=== PATIENT | female | born 1990 | race Asian ===

== ENCOUNTER 2023-07-21 23:32 | Inpatient (IN) ==
[2023-07-22] MEDS ORDERED: GENTAMICIN CONSULT ACTIVE PRN (00:23)
--- NOTE | 2023-07-22 00:29 | History & Physical Report ---
Date of Service July 22, 2023 Assessment & Plan (1) PROM (premature rupture of membranes): Plan: Primary section indicated, recommended, and accepted for rupture of membranes with labor and double footling presentation. Peds and anesthesia notified, en route. Consent completed at bedside and all questions of patient/FOB answered. Will use clinda and gent 2/2 severe allergy to PCN without known prior administration of cephalosporin per patient. (2) Breech presentation of fetus: History of Present Illness Primary Care Provider: NO PCP 33yo at 35w2d presents with SROM at home this evening followed rapidly by onset of painful contractions. Good FM, no VB. Since arriving her contractions have become more painful and gone from Q2-7 to Q2-3. She is gripping bedrails and grimacing with contractions. No prior cervical exams. GBS unknown, not yet collected. States her allergy to PCN is swelling of the face and shortness of breath. Last ingestion was dinner, 5-6pm per FOB. Allergies Allergy/AdvReac Type Severity Reaction Status Date / Time Penicillins Allergy Rash Verified 07/21/23 23:42 beer Allergy Severe Swelling Uncoded 07/09/23 15:30 of Lip/Tongue/Throat Home Medications Medication Instructions Recorded Confirmed Type cholecalciferol (vitamin D3) PO 01/04/23 07/09/23 History ferrous sulfate [Iron (ferrous PO 01/04/23 07/09/23 History sulfate)] vit-iron fum-folic ac PO 01/04/23 07/09/23 History [ Vitamin] vitamin E (dl, acetate) PO 01/04/23 07/09/23 History Past Med/Surg History Medical History Hemorrhoids Depression Surgical History S/P wisdom tooth extraction Family History Family/Other Breast cancer Denies family history of Ovarian cancer Colorectal cancer Social History Smoking Status: Never smoker Do You Dip or Chew Tobacco: No; Hx Alcohol Use: No Hx Substance Use: No Preferred Language: Gibralt[place] Communication Ability: Effective Ship Scraper Required: No Beliefs That Will Affect Care: None marital status: marital status details: Bandar Ponce (29) [phone] Current Living Situation: Spouse Current Living Situation Comment: lives with current occupational status: employed current occupation: [email or web address] Other Information That Helps Us Care for You: No Feels Safe at Home: Yes Safety Concerns: Feels Safe At This Time Physical Exam Constitutional: WD/WN, vitals as above + in distress Eyes: PERRL, conjunctivae normal, anicteric sclerae ENMT: external ear and nose normal, oropharynx normal Neck: supple Respiratory: normal respiratory effort and able to speak in complete sentences; no respiratory distress Cardiovascular: Rate/Rhythm: regular rate and regular rhythm Gastrointestinal (Abdomen): Gravid / AGA, nontender Musculoskeletal: no cyanosis or clubbing, extremities motor strength 5/5 Skin: no rashes, warm and dry Psychiatric: A+Ox3, euthymic affect Genitourinary: Speculum/Bimanual Exam: no vaginal lesions, no vaginal bleeding and uterus nontender OB Exam Abdomen: + breech (double footling, confirmed via bedside US) and + regular contractions (Q3) Manual OB Exam: + cervical dilation 2 cm, + cervical effacement 90%, + station 0 and + amniotic fluid (grossly ruptured for copious clear.) OB Exam Monitor Tracing: + external FHT monitor used, + external uterine monitor used and + category I Lymphatic: no cervical or axillary lymphadenopathy Results & Data Results & Data Vital Signs (Past 12 Hours) Vital Signs Temp Resp 07/21/23 23:44 97.7 F 16 PG Care Time/CCT Total # of Minutes Spent Total Time Spent with Patient: Total time spent is greater than 50% in coordination of care (as documented) at patient's floor/unit and/or counseling patient: Coding Level of Care Code None Diagnoses PROM (premature rupture of membranes) O42.90 Breech presentation of fetus O32.1XX0
[2023-07-22] MEDS: CITRIC ACID/SODIUM CITRATE 15 ML UDC PO ONE (00:55)
[2023-07-22] MEDS: LACTATED RINGER'S 1,000 ML IV SCH (00:55)
[2023-07-22] MEDS: CLINDAMYCIN/D5W 900 MG/50 ML BAG IV ONE (00:56)
[2023-07-22] MEDS ORDERED: ePHEDrine sulfate 50 MG/ML AMP IV PRN (00:57)
[2023-07-22] MEDS ORDERED: KETOROLAC 30 MG/ML VIAL IV PRN ×2 (00:57→18:57)
[2023-07-22] MEDS ORDERED: LACTATED RINGER'S 500 ML IV PRN (00:57)
[2023-07-22] MEDS ORDERED: MoRPHine SULFATE PF 1 MG/ML 10 ML AMP/VIAL INT SPINAL ONE (00:57)
[2023-07-22] MEDS ORDERED: MoRPHine SULFATE 2 MG/ML CARP IV PRN (00:57)
[2023-07-22] MEDS ORDERED: NALOXONE HCL 0.08 MG in SYRINGE 1.8 ML IV PRN (00:57)
[2023-07-22] MEDS ORDERED: MEPERIDINE HCL 25 MG/ML CARP/VIAL IV PRN (00:57)
[2023-07-22] MEDS ORDERED: PROMETHAZINE HCL 6.25 MG in SODIUM CHLORIDE 0.9% 50 ML IV PRN (00:57)
[2023-07-22] MEDS ORDERED: NALOXONE HCL 0.4 MG/1 ML VIAL/CARP IV PRN (00:57)
[2023-07-22] MEDS ORDERED: NALOXONE HCL 1 MG in SODIUM CHLORIDE 0.9% 1,000 ML IV PRN (00:57)
[2023-07-22] MEDS ORDERED: HYDROmorphone INJ 0.5 MG/0.5 ML SYR IV PRN (00:57)
[2023-07-22] MEDS ORDERED: diphenhydrAMINE 50 MG/ML VIAL IV PRN ×2 (00:57→18:57)
[2023-07-22] MEDS ORDERED: NALBUPHINE HCL 5 MG in SYRINGE 0 ML IV PRN (00:57)
--- NOTE | 2023-07-22 00:57 | Anesthesiology Consultation ---
Date of Service July 22, 2023 Assessment & Plan Chart Review Chart Review: Acceptable Risk for Surgery and Patient NOT seen in Pre Admission Testing Consults Requested none ASA ASA2E Proposed Anesthesia Anesthesia Type: Spinal (+intrathecal narcotics) Risk / Benefits Reviewed With: PT / POA / Parent / Guardian, Accepts Plan and Informed Consent Obtained History Surgery Operation Date: 07/22/23 01:00 Proposed Procedures p Section in LD - Radha Pichardo MD Height/Weight Height: 5 ft 2 in Weight: 61.689 kg Allergies Allergy/AdvReac Type Severity Reaction Status Date / Time Penicillins Allergy Rash Verified 07/21/23 23:42 beer Allergy Severe Swelling Uncoded 07/09/23 15:30 of Lip/Tongue/Throat Medications Home Medications Medication Instructions Recorded Confirmed Last Taken cholecalciferol (vitamin D3) PO 01/04/23 07/09/23 1 Day Ago ~07/20/23 ferrous sulfate [Iron (ferrous PO 01/04/23 07/09/23 1 Day Ago sulfate)] ~07/20/23 vit-iron fum-folic ac PO 01/04/23 07/09/23 1 Day Ago [ Vitamin] ~07/20/23 vitamin E (dl, acetate) PO 01/04/23 07/09/23 1 Day Ago ~07/20/23 NPO Date Last Intake of Fluids: 07/21/23 Time Last Intake of Fluids: 17:00 Date Last Intake of Solids: 07/21/23 Time Last Intake of Solids: 17:00 Past Medical History Medical History Hemorrhoids Depression Exercise / Class Metabolic Activity II 4-5 Yardwork/Stairs/Walk up hill Past Family History Family History Family/Other Breast cancer Denies family history of Ovarian cancer Colorectal cancer Past Surgical History Surgical History S/P wisdom tooth extraction Past Anesthesia History No Hx of Anesthesia Complications and No Family Hx of Anesthesia Complications History of PONV No Hx of PONV and No Hx of Motion Sickness Social History Smoking Status: Never smoker Do You Dip or Chew Tobacco: No Hx Alcohol Use: No Hx Substance Use: No substance use type: does not use Physical Exam Vital Signs Last Vital Signs Temp 36.5 C 07/21/23 23:44 Pulse 70 07/22/23 00:24 Resp 16 07/21/23 23:44 BP 108/63 07/22/23 00:24 ENMT Mouth: no dentition abnormality Thyromental Distance: > or= 3.5 Finger Breadths Mallampati Class: II Neck normal visual inspection Respiratory normal respiratory effort Auscultation: lungs clear to auscultation bilaterally Cardiovascular Rate/Rhythm: regular rate and regular rhythm Psychiatric Orientation: alert
[2023-07-22] MEDS ORDERED: SODIUM CHLORIDE 0.9% 1,000 ML IV SCH (01:00)
[2023-07-22] MEDS ORDERED: NO NARCOTICS OR SEDATIVES SCH (01:00)
[2023-07-22] MEDS ORDERED: DC INTRASPINAL MORPHINE SCH (01:00)
[2023-07-22] MEDS ORDERED: MoRPHine SULFATE PF 1 MG/ML 10 ML AMP/VIAL ONE (01:01)
[2023-07-22 01:06] LABS: Hematocrit (blood only) 39.4 % (37.0-47.0); Hemoglobin 13.6 g/dl (12.0-16.0); Mean Corpuscular Hemoglobin 32.4 pg (25.0-34.0); Mean Corpuscular Hgb Conc 34.5 g/dL (32.0-36.0); Mean Corpuscular Volume 93.8 fL (80.0-100.0); Mean Platelet Volume 11.7 fL (9.4-12.4); Platelet Count 140 K/uL (130-400); RDW Coefficient of Variation 13.2 % (11.5-14.5); RDW Standard Deviation 45.5 fL (36.4-46.3); White Blood Count 8.69 K/ul (4.8-10.8)
[2023-07-22] MEDS: GENTAMICIN SULFATE 300 MG in DEXTROSE 5% 100 ML IV ONE (01:07)
[2023-07-22] MEDS ORDERED: PHENYLEPHRINE 100MCG/ML 10ML SYR IV ONE (01:47)
[2023-07-22] MEDS ORDERED: KETOROLAC 30 MG/ML VIAL ONE (01:47)
[2023-07-22] MEDS ORDERED: OXYTOCIN 10 UNITS/ML VIAL ONE (01:48)
--- NOTE | 2023-07-22 01:54 | Operative Report ---
PG Post Operative Report Pre & Post Diagnosis Operation Date: 07/22/23 01:00 SIUP @ 35w2d PPROM/PTL Double Footling Breech position I identified the patient and participated in the time-out.: Yes Procedure Operation Date: 07/22/23 01:00 Actual Procedures Primary Low Transverse Section Surgeon Radha Pichardo MD Web Pressman Laney Pacheco RN Estimated Blood Loss 500 Findings Consistent with Post-Op Diagnosis Specimens Placenta, Cord blood Anesthesia Type Spinal Complications none Disposition Accompanied Patient To Recovery: Yes Disposition: L&D Description of Procedure The patient was placed operating table in the supine position with a leftward tilt. She was prepped and draped in standard sterile fashion. The anesthetic was tested and found to be adequate. A time-out was held, identifying correct patient, procedure, positioning and preoperative antibiotics. There were no concerns. A Pfannenstiel skin incision was made with a knife and taken down to the underlying layer of fascia. The fascia was incised in the midline with the knife and taken out laterally with scissors. The superior edge of the fascial incision was grasped, elevated and dissected off the underlying rectus both superiorly and inferiorly. The muscles were bluntly in the midline. The peritoneum was entered bluntly. The incision was then stretched. The bladder retractor was placed. The vesicouterine peritoneum was identified, ente red with scissors and taken out laterally with scissors. The bladder flap was created digitally. A hysterotomy incision was created transversely in the lower uterine segment, final entry being accomplished in a blunt manner with the lamination operator's fingers. Clear amniotic fluid was encountered. The lamination operator's hand was used to elevate both feet to the hysterotomy. The body was rotated sacrum anterior and delivered to the axillae, and each arm was swept in physiologic fashion. The head was delivered using mild fundal pressure, maintaining flexion. The cord was clamped and cut and the infant was then handed off to the awaiting director client. Cord blood was obtained. The placenta was Manually extracted. The uterus was exteriorized and cleared of all clot and debris with moistened laparotomy sponges. Several fibroids up to 2-3cm were noted. The hysterotomy incision was repaired in two layers, the first in a running locked layer, the second in an imbricating layer. The ovaries and tubes were seen to be normal bilaterally. The uterus was gently replaced in the abdomen, and the gutters were cleared of clot and debris. A final inspection of the hysterotomy revealed good hemostasis. The rectus muscles were allowed to reapproximate naturally. The fascia was then reapproximated with 1 Vicryl in a running nonlocked manner. The fascia was examined and found to be free of defect following closure. The subcutaneous tissue was copiously irrigated and reapproximated with 0-chromic, then the skin edges were closed with 4-0 monocryl in a subcuticular fashion. A dermabond dressing was applied. The josé was found to be draining clear yellow urine at completion of the procedure. I attest to the content of the Intraoperative Record and any orders documented therein. Any exceptions are noted below. I attest to the content of the Intraoperative Record and any orders documented therein. Any exceptions are noted below.
--- NOTE | 2023-07-22 02:02 | Anesthesiology Progress Note ---
Date of Service July 22, 2023 Anesthesia Post Procedure Vital Signs Vital Signs: Temp Pulse Resp BP Pulse Ox 07/22/23 02:00 66 100 07/22/23 01:59 65 92/50 L 07/22/23 01:00 16 07/22/23 01:00 16 07/22/23 00:24 70 108/63 07/21/23 23:44 36.5 C 16 Transfer of Care Handoff Completed per policy Notes Mental Status: alert / awake / arousable Nausea / Vomiting: adequately controlled Pain: adequately controlled Airway Patency, RR, SpO2: stable & adequate BP & HR: stable & adequate Hydration State: stable & adequate Neuraxial Anesthesia: was administered and sensory block is resolving Anesthetic Complications: no major complications apparent and Pt Satisfied with anesthetic care
[2023-07-22] MEDS ORDERED: HYDROCORTISONE ACETATE 25 MG SUPP PR PRN (02:11)
[2023-07-22] MEDS ORDERED: BENZOCAINE 20% SPRY 85 APPLN/85 GM CAN EXT PRN (02:11)
[2023-07-22] MEDS ORDERED: SENNA 8.6 MG TAB PO PRN (02:11)
[2023-07-22] MEDS ORDERED: DIPHTHER/TETAN/PERTUS Vaccine (Tdap, Adol/Adult) 0.5mL IM ONE (02:11)
[2023-07-22] MEDS ORDERED: MAGNESIUM HYDROXIDE SUSP 30 ML UDC PO PRN (02:11)
[2023-07-22] MEDS: OXYTOCIN 30 UNITS/LR 1,003 ML IV SCH (05:53)
[2023-07-22] MEDS: ONDANSETRON INJ 2 MG/ML 2 ML VIAL IV PRN (07:28)
[2023-07-22] MEDS ORDERED: LACTATED RINGER'S 1,000 ML IV SCH (10:30)
[2023-07-22] MEDS: PRENATAL VITAMIN 1 TAB PO SCH (13:01)
[2023-07-22] MEDS: DOCUSATE SODIUM 100 MG CAP PO SCH (13:01)
[2023-07-22] MEDS: SIMETHICONE 80 MG CHEW PO SCH (13:02)
[2023-07-22] MEDS: FERROUS SULFATE 325 MG TAB PO SCH (13:36)
[2023-07-22] MEDS ORDERED: PROMETHAZINE HCL 25 MG in SODIUM CHLORIDE 0.9% 50 ML IV PRN (18:57)
[2023-07-22] MEDS ORDERED: MEPERIDINE HCL 50 MG/ML CARP IV PRN (18:57)
[2023-07-22] MEDS ORDERED: ONDANSETRON INJ 2 MG/ML 2 ML VIAL IV PRN (18:57)
[2023-07-22] MEDS ORDERED: diphenhydrAMINE Capsule 25 MG CAP PO PRN (18:57)
[2023-07-22] MEDS: oxyCODONE/ACETAMINOPHEN 5mg/325mg TAB PO PRN (20:10)
[2023-07-22] MEDS: IBUPROFEN 600 MG TAB PO PRN (20:10)
--- NOTE | 2023-07-23 06:07 | Obstetrical Progress Note ---
Date of Service July 23, 2023 Assessment & Plan (1) Encounter for assessment: Plan: 33 yo post day 1 c section Vital signs reviewed Hgb stable Rubella immune Pain well controlled with ibuprofen Continue ambulation Encourage Admission and Anticipated Discharge Date Admission Date: July 22, 2023 Supervising Physician Co-Signing Physician Notes Resident Physician Supervision Note: I interviewed and examined the patient. Discussed with Dr. Rubio and agree with findings and plan as documented in the note. Any exceptions or clarifications are listed here: [ ] Documented By: Radha Pichardo MD, FACOG Subjective 33 yo G1Po post- day 1 s/p C/S Ambulation: ambulating normally Voiding: no voiding problems Passing Gas:: Yes Diet Tolerance:: regular diet Lochia:: Small Feeding Type:: Breast Feeding Resting comfortably this AM in NAD. Denies PEREZ, CP, SOB, N/V/D, LE pain/swelling. Review of Systems Review of Systems: All systems reviewed & are unremarkable except as noted in HPI & below Physical Exam Physical Exam: General: patient resting comfortably, NAD, non-toxic in appearance, AA&O x 4, answers questions appropriately. Skin: warm, dry, intact HEENT: NC/AT, anicteric sclera, conjunctiva without injection, moist mucus membranes. Heart: +S1/S2, regular, no m/r/g Lungs: equal air entry bilaterally, no rales/rhonchi/wheezes Abd: +BS, soft, NT/ND, uterine fundus firm at umbilicus, incision w/o erythema, bleeding, no signs of infections Ext: warm, no clubbing/cyanosis or edema, Christian's neg. Neuro: nonfocal, patient AA&O x 4, speech intact, no facial droop, moving all extremities on command. Results & Data Vital Signs (Past 12 Hours) Vital Signs Temp Pulse Resp BP Pulse Ox O2 Del Method 07/23/23 00:15 36.8 C 64 14 96/68 L Room Air 07/22/23 19:00 36.9 C 74 16 91/51 L 99 Room Air 07/22/23 19:00 16 98 Resident Activity Tracking Resident Involvement: Resident Care Provided Care Provided: OB Delivery
[2023-07-23 06:19] LABS: Basophils # (auto) 0.02 K/uL (0.00-0.20); Basophils % (auto) 0.2 %; Eosinophils # (auto) 0.06 K/uL (0.00-0.50); Eosinophils % (auto) 0.5 %; Hematocrit (blood only) 33.7 % (37.0-47.0); Immature Granulocytes # (auto) 0.06 K/uL (0.01-0.20); Immature Granulocytes % (auto) 0.5 %; Lymphocytes % (auto) 14.4 %; Mean Corpuscular Hemoglobin 33.1 pg (25.0-34.0); Mean Corpuscular Hgb Conc 35.6 g/dL (32.0-36.0); Mean Corpuscular Volume 92.8 fL (80.0-100.0); Mean Platelet Volume 11.6 fL (9.4-12.4); Monocytes % (auto) 8.5 %; Neutrophils # (auto) 8.95 K/uL (1.40-6.50); Neutrophils % (auto) 75.9 %; Platelet Count 149 K/uL (130-400); RDW Coefficient of Variation 13.7 % (11.5-14.5); RDW Standard Deviation 46.4 fL (36.4-46.3); Red Blood Count 3.63 M/uL (4.20-5.40); White Blood Count 11.79 K/ul (4.8-10.8)
[2023-07-23] MEDS: bisacodyL 5 MG TABEC PO SCH (20:54)
[2023-07-24] MEDS ORDERED: bisacodyL 10 MG SUPP PR PRN (01:58)
--- NOTE | 2023-07-24 06:23 | Obstetrical Progress Note ---
Date of Service July 24, 2023 Assessment & Plan (1) Encounter for assessment: Plan: 33 yo post day 2 c section Vital signs reviewed Hgb stable Rubella immune Pain well controlled with ibuprofen Continue ambulation Encourage Admission and Anticipated Discharge Date Admission Date: July 22, 2023 Supervising Physician Co-Signing Physician Notes Resident Physician Supervision Note: I interviewed and examined the patient. Discussed with Dr. Tutu Whitt and agree with findings and plan as documented in the note. Any exceptions or clarifications are listed here: POD2 s/p pLTCS, overall doing well. She had mentioned to rounding team yesterday that on right medial glute was an area of tenderness and redness and they felt that it was a small boil that had maybe popped so was ordered a topical ointment which she has been applying. Pt and her make note of it again today, concerned that it is pressure ulcer from CS - discussed not likely given usual course that pressure ulcers and time it takes to develop. Possible that was a boil from before that has since become irritated with delivery and being in bed. VSS, exam benign and wnl, incision c/d/i. On R glute is small area of redness, slightly indurated but does not appear infected. Will k[place] this area and make sure not growing, pt is afebrile. Will continue to monitor, routine pp care otherwise Documented By: Rand Cope MD Subjective 33 yo post- day 2 s/p C/S Ambulation: ambulating normally Voiding: no voiding problems Passing Gas:: Yes Diet Tolerance:: regular diet Lochia:: Small Feeding Type:: Breast Feeding Resting comfortably this AM in NAD. Denies PEREZ, CP, SOB, N/V/D, LE pain/swelling. Review of Systems Review of Systems: All systems reviewed & are unremarkable except as noted in HPI & below Physical Exam Physical Exam: General: patient resting comfortably, NAD, non-toxic in appearance, AA&O x 4, answers questions appropriately. Skin: warm, dry, intact HEENT: NC/AT, anicteric sclera, conjunctiva without injection, moist mucus membranes. Heart: +S1/S2, regular, no m/r/g Lungs: equal air entry bilaterally, no rales/rhonchi/wheezes Abd: +BS, soft, NT/ND, uterine fundus firm at umbilicus, incision w/o erythema, bleeding, no signs of infections Ext: warm, no clubbing/cyanosis or edema, Christian's neg. Neuro: nonfocal, patient AA&O x 4, speech intact, no facial droop, moving all extremities on command. Results & Data Vital Signs (Past 12 Hours) Vital Signs Temp Pulse Resp BP Pulse Ox O2 Del Method 07/23/23 20:45 Room Air 07/23/23 20:45 36.9 C 81 18 94/57 L 100 Room Air Resident Activity Tracking Resident Involvement: Resident Care Provided Care Provided: Adult Hospital Medicine
[2023-07-24 06:26] LABS: Hematocrit (blood only) 35.8 % (37.0-47.0); Hemoglobin 12.3 g/dl (12.0-16.0)
--- NOTE | 2023-07-25 06:11 | Obstetrical Progress Note ---
Date of Service July 25, 2023 Assessment & Plan (1) Encounter for assessment: Plan: 33 yo post day 3 c section Vital signs reviewed Hgb stable Rubella immune Pain well controlled with ibuprofen Continue ambulation Encourage Discharge home, instructions reviewed Admission and Anticipated Discharge Date Admission Date: July 22, 2023 Supervising Physician Co-Signing Physician Notes Resident Physician Supervision Note: I was present with Dr. Tutu Whitt during the history and exam. I discussed the case with the resident and agree with the findings and plan as documented in the note. Any exceptions or clarifications are listed here: POD#3 doing well. DC home today. Instructions reviewed, followup 6w in office. Rx Percocet #20 tabs to [facility]. Evaluated right buttocks - there is now a healing blister, no further erythema. This does not look like cellulitis - discussed supportive care. Documented By: Korin Muniz, DO Subjective 33 yo post- day 3 s/p C/S Ambulation: ambulating normally Voiding: no voiding problems Passing Gas: Yes Diet Tolerance:: regular diet Lochia:: Small Feeding Type: Breast Feeding and bottle feeding Resting comfortably this AM in NAD. Denies PEREZ, CP, SOB, N/V/D, LE pain/swelling. Review of Systems Review of Systems: All systems reviewed & are unremarkable except as noted in HPI & below Physical Exam Physical Exam: General: patient resting comfortably, NAD, non-toxic in appearance, AA&O x 4, answers questions appropriately. Skin: warm, dry, intact, Blister on right buttlock, minimal erythema, no bleeding, no warm Heart: +S1/S2, regular, no m/r/g Lungs: equal air entry bilaterally, no rales/rhonchi/wheezes Abd: +BS, soft, NT/ND, uterine fundus firm at umbilicus, incision w/o erythema, bleeding, no signs of infections Ext: warm, no clubbing/cyanosis or edema, Christian's neg. Neuro: nonfocal, patient AA&O x 4, speech intact, no facial droop, moving all extremities on command. Results & Data Vital Signs (Past 12 Hours) Vital Signs Temp Pulse Resp BP Pulse Ox O2 Del Method 07/24/23 23:39 36.5 C 80 18 113/76 98 Room Air 02/13/24 19:30 Room Air 07/24/23 19:30 36.6 C 67 20 108/74 98 Room Air Resident Activity Tracking Resident Involvement: Resident Care Provided Care Provided: OB Delivery
[2023-07-25 17:47] VITALS: BP 118/70; PULSE 73; RESP 18; TEMP 98.4; O2SAT 97
--- NOTE | 2023-07-26 17:27 | Discharge Summary ---
Date of Service July 26, 2023 Admission HPI Per Admitting Provider 33yo at 35w2d presents with SROM at home this evening followed rapidly by onset of painful contractions. Good FM, no VB. Since arriving her contractions have become more painful and gone from Q2-7 to Q2-3. She is gripping bedrails and grimacing with contractions. No prior cervical exams. GBS unknown, not yet collected. States her allergy to PCN is swelling of the face and shortness of breath. Last ingestion was dinner, 5-6pm per FOB. Discharge Data Consultations 07/22/23 00:23 Consult Anesthesiology Stat Procedures Performed Operation Date: 07/22/23 01:00 Actual Procedures p Primary Section in LD. Live male child at 0124 - Radha Pichardo MD Coding Level of Care Code None
== END 2023-07-25 19:35 | disposition home or self-care (01) | DRG 788 ==
LOC: OPB 23:32 → 4S1 23:33 → 4E2 07-22 06:22
DX: O42.913 Preterm premature rupture of membranes, unspecified as to length of time between rupture and onset of labor, third trimester; Z37.0 Single live birth; O32.8XX0 Maternal care for other malpresentation of fetus, not applicable or unspecified; Z3A.35 35 weeks gestation of pregnancy; Z88.0 Allergy status to penicillin